=== PATIENT | female | born 1945 | race Caucasian/White ===

== ENCOUNTER 2020-07-31 13:22 | Emergency (ER) | payer MEDICARE ==
[~2020-07-31] VITALS: Ht 167.6 cm; Wt 100.0 kg
--- NOTE | 2020-07-31 14:00 | NUR ---
Pt stating that she wants "to take myself out" "My family hates me and so do I"
[2020-07-31 14:18] LABS: CLARITY,URINE CLEAR (Clear); COLOR,URINE STRAW (Yellow); GLUCOSE, URINE NEGATIVE (Neg); KETONES,URINE NEGATIVE (Neg); LEUKOCYTE ESTERASE ,URINE SMALL (Neg); NITRITES, URINE NEGATIVE (Neg); OCCULT BLOOD,URINE NEGATIVE (Neg); PH,URINE 6.5 (4.8-8.0); PROTEIN,URINE NEGATIVE (Neg); UA COLLECTION TYPE VOIDED; UROBILINOGEN,URINE 0.2 E.U/dL (0.2-1.0)
[2020-07-31 14:24] LABS: BACTERIA,URINE FEW /HPF (Neg); MUCUS STRANDS NONE SEEN /LPF (Neg); RBC,URINE NONE SEEN /HPF (0-2); SQUAMOUS EPITHELIAL CELL,UR FEW /LPF (FEW); WBC,URINE 0-4 /HPF (0-4)
[2020-07-31] MEDS ORDERED: GABA300T25 PO (14:24)
[2020-07-31] MEDS ORDERED: BENA10TA74 PO (14:24)
[2020-07-31] MEDS ORDERED: CITA40TA17 PO (14:24)
[2020-07-31] MEDS ORDERED: TRAM50TA2 PO (14:24)
[2020-07-31] MEDS ORDERED: METO25TA6 PO (14:24)
[2020-07-31] MEDS ORDERED: TRIA454O TOP (14:24)
--- NOTE | 2020-07-31 14:30 | NUR ---
Pt assisted to BSC and back to bed. Pt provided a warm blanket.
[2020-07-31 14:33] LABS: URINE AMPHETAMINE SCREEN NEGATIVE (Neg); URINE BARBITUATE SCREEN NEGATIVE (Neg); URINE BENZODIAZEPINES SCREEN NEGATIVE (Neg); URINE CANNABINOID SCREEN NEGATIVE (Neg); URINE COCAINE SCREEN NEGATIVE (Neg); URINE METHADONE SCREEN NEGATIVE (Neg); URINE OPIATE SCREEN NEGATIVE (Neg); URINE PHENCYCLIDINE SCREEN NEGATIVE (Neg)
--- NOTE | 2020-07-31 14:38 | NUR ---
Lab at bedside.
[2020-07-31] MEDS ORDERED: POTA10CA44 PO (14:39)
[2020-07-31 14:52] LABS: BASOPHILS % (AUTO) 0.5 % (0-1); EOSINOPHILS # (AUTO) 0.1 X10'3 (0-0.9); EOSINOPHILS % (AUTO) 0.8 % (0-6); HEMATOCRIT 41.6 % (35.0-45.0); HEMOGLOBIN 13.5 g/dl (12.0-16.0); LYMPHOCYTES # (AUTO) 1.2 X10'3 (1.1-4.8); MEAN CORPUSCULAR HEMOGLOBIN 28.5 PG (27.0-31.0); MEAN CORPUSCULAR HGB CONC 32.5 g/dL (33.0-36.5); MEAN CORPUSCULAR VOLUME 87.8 FL (78-98); MEAN PLATELET VOLUME 7.8 FL (7.4-10.4); MONOCYTES # (AUTO) 0.8 X10'3 (0-0.9); MONOCYTES % (AUTO) 11.1 % (2-12); NEUTROPHILS # (AUTO) 4.7 X10'3 (1.8-7.7); NEUTROPHILS % (AUTO) 69.6 % (42-75); PLATELET COUNT 220 X10'3 (140-440); RED BLOOD COUNT 4.74 X10'6 (4.20-5.60); RED CELL DISTRIBUTION WIDTH 18.9 % (11.5-14.5); WHITE BLOOD COUNT 6.8 X10'3 (4.5-11.0)
--- NOTE | 2020-07-31 15:00 | NUR ---
Pt up to the comode to urinate. Pt lying in bed without complaints.
[2020-07-31 15:14] LABS: ALANINE AMINOTRANSFERASE 66 U/L (12-78); ALBUMIN 2.9 G/DL (3.4-5.0); ALBUMIN/GLOBULIN RATIO 0.8 (1.1-1.5); ALKALINE PHOSPHATASE 112 IU/L (46-116); ANION GAP 11 (8-16); ASPARTATE AMINO TRANSFERASE 168 U/L (10-37); BILIRUBIN,TOTAL 0.7 MG/DL (0.1-1.0); BLOOD UREA NITROGEN 4 MG/DL (7-18); BUN/CREATININE RATIO 5.7 (6.6-38.0); CALCIUM 8.1 MG/DL (8.5-10.1); CHLORIDE 101 MMOL/L (99-107); GLUCOSE 93 MG/DL (70-104); POTASSIUM 3.3 MMOL/L (3.5-5.1); SODIUM 139 MMOL/L (135-145); TOTAL PROTEIN 6.7 G/DL (6.4-8.2); eGFR 82 ML/MIN
[2020-07-31 15:21] LABS: ETHANOL 0.147 GM/DL (0.0-0.010)
[2020-07-31 15:22] LABS: ACETAMINOPHEN < 2.0 UG/ML (10-30)
[2020-07-31 15:28] LABS: ANISOCYTOSIS 2+; PLATELET ESTIMATE NORMAL; POLYCHROMASIA FEW
[2020-07-31] MEDS ORDERED: traMADol 50MG tablet PO PRN (15:30)
--- NOTE | 2020-07-31 17:00 | NUR ---
Pt up multiple times to the comode to urinate. Pt c/o back pain, but when offered tramadol, pt refused and asked for some food which was provided.
[2020-07-31] MEDS ORDERED: ALBU2.5V10 (17:37)
[2020-07-31] MEDS ORDERED: albuterol 2.5 MG/3 ML nebule NEB PRN (17:40)
--- NOTE | 2020-07-31 19:04 | NUR ---
Patient is low fowlers position in bed. She complains of body pain, she exhibits anxiety, she states she needs night time oxygen as she has a history of asthma. SaO2 is 96 percent on room air, her lung mayer are clear and equal bilaterally. Patient is pink, warm, and dry. She speeks full sentences. Patient tells this machine sign writer that she wants oxygen tonight. Patient advised that at this time she is saturating well, this machine sign writer will re-evaluate prn. Patient Covid swab was done and sent to lab for a rapid.
[2020-07-31] MEDS: metoprolol tartrate 25mg tablet PO SCH (20:00)
--- NOTE | 2020-07-31 20:10 | NUR ---
Patient resting quietly, no distress. In view from nurses station.
[2020-07-31] MEDS: triamcinolone acetonide 0.1% ointment 15gm TP SCH (21:00)
[2020-07-31] MEDS: gabapentin 300mg capsule PO SCH (21:23)
--- NOTE | 2020-07-31 21:30 | NUR ---
Patient being interview by [facility].
--- NOTE | 2020-07-31 22:10 | NUR ---
Patient is sleeping, mid fowlers. W/D, no distress noted. Patient has been medication compliant.
--- NOTE | 2020-07-31 23:44 | NUR ---
Patient is resting quietly, mid fowlers position in bed. In view from nurses station.
--- NOTE | 2020-08-01 00:36 | NUR ---
Covid 19 test is negative.
--- NOTE | 2020-08-01 04:08 | NUR ---
Patient sleeps quietly on her left side. No s/s of any distress.
--- NOTE | 2020-08-01 06:44 | NUR ---
Received report from JEFFRY Rice. Pt resting with no distress noted. Pt. reporting nausea. Emesis basin at bedside. Will continue to monitor.
--- NOTE | 2020-08-01 06:48 | NUR ---
Pt. sleeping supine at this time.
[2020-08-01] MEDS: metoprolol tartrate 25mg tablet PO SCH ×2 (07:55→20:21)
[2020-08-01] MEDS: gabapentin 300mg capsule PO SCH ×3 (07:55→20:19)
[2020-08-01] MEDS ORDERED: potassium chloride 10mEq ER tablet PO SCH (08:00)
[2020-08-01] MEDS ORDERED: lisinopril 10 MG tablet PO SCH (08:00)
[2020-08-01] MEDS ORDERED: citalopram 20mg tablet PO SCH (08:00)
--- NOTE | 2020-08-01 08:04 | NUR ---
Chicken broth and crackers provided for c/o nausea, pt. states she is feeling better. Breakfast at bedside. Breathing treatment requested by pt. for c/o SOB, respiratory department notified via page. No respiratory distress noted. Will continue to monitor.
--- NOTE | 2020-08-01 09:55 | NUR ---
Pt awake resting in bed, no distress noted. Pt. seen using restroom utilizing walker with no difficulty noted. Pt. asking about placement, pt. told her paperwork is being reviewed by facilities and we are awaiting call backs.
--- NOTE | 2020-08-01 11:55 | NUR ---
Pt. awake, up using restroom. No distress noted. Will continue to monitor.
--- NOTE | 2020-08-01 13:25 | NUR ---
Pt. awake, pt. refused her lunch. Using restroom at this time. No distress noted. Will continue to monitor.
--- NOTE | 2020-08-01 15:28 | NUR ---
Pt. asleep supine in bed. No distress noted. Will continue to monitor.
[2020-08-01] MEDS ORDERED: potassium chloride 10mEq ER tablet PO ONE (16:00)
--- NOTE | 2020-08-01 16:23 | NUR ---
Pt. accepted upstairs at [facility], pt. notified and is ok with this decision. Pt. up using restroom at this time. No distress noted. Will continue to monitor.
--- NOTE | 2020-08-01 17:42 | NUR ---
Pt awake at bedside, Pt. informed RN she has been having episodes of diarrhea throughout the day and on and off nausea. Pt requesting medication to help with these symptoms. MD notified of mild temp. New orders obtained for zofran, no new medications for anti-diarrheal at this time to r/o infection.
[2020-08-01] MEDS ORDERED: ondansetron 4mg rapidly disintigrating tab PO PRN (17:55)
--- NOTE | 2020-08-01 19:03 | NUR ---
Patient is low fowlers position in bed. She presents as cooperative and needy. Patient was adjusted in bed, given fresh water, etc. SaO2 is 94 percent on room air. No abdominal or accessary muscle use.
[2020-08-01] MEDS: triamcinolone acetonide 0.1% ointment 15gm TP SCH (20:22)
[2020-08-01 20:35] VITALS: BP 128/90
== END 2020-08-01 21:44 | disposition home or self-care (01) ==
LOC: ER 13:23
DX: R45.851 Suicidal ideations (principal); I50.9 Heart failure, unspecified; J45.909 Unspecified asthma, uncomplicated; Z79.899 Other long term (current) drug therapy; Z91.040 Latex allergy status
CPT/HCPCS: 36415; 80053; 80305; 80320; 80329; 81001; 84132; 84443; 85008; 85025; 87635; 94640; 94664; 94760; 99285; C9803

== ENCOUNTER 2020-11-26 13:40 | Emergency (ER) | payer MEDICARE, BC ==
[~2020-11-26] VITALS: Ht 167.6 cm; Wt 86.4 kg
[~2020-11-26 13:40] MED LIST: ALBU2.5V10; CITA20TA28 PO; FOLI0.4T14 PO; FURO20TA4 PO; GABA300T25 PO; POTA-82 PO; THIA100T66 PO
[2020-11-26 14:50] LABS: CLARITY,URINE SLIGHTLY CLOUDY (Clear); COLOR,URINE STRAW (Yellow); GLUCOSE, URINE NEGATIVE (Neg); KETONES,URINE NEGATIVE (Neg); LEUKOCYTE ESTERASE ,URINE SMALL (Neg); NITRITES, URINE POSITIVE (Neg); OCCULT BLOOD,URINE NEGATIVE (Neg); PH,URINE 5.5 (4.8-8.0); PROTEIN,URINE NEGATIVE (Neg); UROBILINOGEN,URINE 0.2 E.U/dL (0.2-1.0)
[2020-11-26 14:53] LABS: BASOPHILS # (AUTO) 0.1 X10'3 (0-0.2); EOSINOPHILS # (AUTO) 0.3 X10'3 (0-0.9); EOSINOPHILS % (AUTO) 3.7 % (0-6); HEMATOCRIT 41.6 % (35.0-45.0); HEMOGLOBIN 13.5 g/dl (12.0-16.0); LYMPHOCYTES # (AUTO) 1.5 X10'3 (1.1-4.8); MEAN CORPUSCULAR HGB CONC 32.6 g/dL (33.0-36.5); MEAN PLATELET VOLUME 8.8 FL (7.4-10.4); MONOCYTES % (AUTO) 11.7 % (2-12); NEUTROPHILS # (AUTO) 5.4 X10'3 (1.8-7.7); NEUTROPHILS % (AUTO) 65.6 % (42-75); PLATELET COUNT 247 X10'3 (140-440); RED BLOOD COUNT 4.83 X10'6 (4.20-5.60); RED CELL DISTRIBUTION WIDTH 17.5 % (11.5-14.5); WHITE BLOOD COUNT 8.2 X10'3 (4.5-11.0)
[2020-11-26 14:55] LABS: UA COLLECTION TYPE VOIDED
[2020-11-26 14:57] LABS: BACTERIA,URINE 4+ /HPF (Neg); MUCUS STRANDS NONE SEEN /LPF (Neg); RBC,URINE NONE SEEN /HPF (0-2); SQUAMOUS EPITHELIAL CELL,UR FEW /LPF (FEW); TRANSITIONAL EPI CELLS,URINE FEW /HPF; WBC CLUMPS,URINE MODERATE /HPF (NEGATIVE); WBC,URINE 30-50 /HPF (0-4)
[2020-11-26 15:07] LABS: ALANINE AMINOTRANSFERASE 20 U/L (12-78); ALBUMIN 3.3 G/DL (3.4-5.0); ALBUMIN/GLOBULIN RATIO 0.8 (1.1-1.5); ALKALINE PHOSPHATASE 82 IU/L (46-116); ANION GAP 14 (8-16); ASPARTATE AMINO TRANSFERASE 27 U/L (10-37); BILIRUBIN,TOTAL 0.3 MG/DL (0.1-1.0); BLOOD UREA NITROGEN 11 MG/DL (7-18); BUN/CREATININE RATIO 16.9 (6.6-38.0); CALCIUM 8.8 MG/DL (8.5-10.1); CHLORIDE 102 MMOL/L (99-107); CREATININE 0.65 MG/DL (0.40-0.90); GLUCOSE 129 MG/DL (70-104); POTASSIUM 3.2 MMOL/L (3.5-5.1); SODIUM 139 MMOL/L (135-145); TOTAL CARBON DIOXIDE 23.3 MMOL/L (24-32); TOTAL PROTEIN 7.4 G/DL (6.4-8.2); eGFR 89 ML/MIN
--- NOTE | 2020-11-26 15:36 | NUR ---
Upon patients arrival to the Emergency Department, Patient and EMS were under the impression that patient was to be placed at [facility] upon discharge with the following documentation: medical clearance, admission orders to [facility], and negative COVID swab. To further evaluate regarding patients placement, I spoke with Madison from [facility]. At which she gave me her cutting room supervisor Areli's phone number . Spoke with Areli who stated that patient did in fact need a COVID swab and admission orders to [facility] per Reynaldo, . I explained the process of admitting patients to a [facility] facility and I believed that there was some confusion regarding this process. I then spoke with Reynaldo, at which same request was asked. I explained that the ER physicians do not write admission orders for patients to go to senior living care and that usually this was done my PCP or upon discharge from the hospital after admission. Reynaldo stated that she need to contact her Director of nurses, Es and would call ER back. Reynaldo called back at [phone], we had discussed the need to admission to hospital for admission to [facility] and that if patient did not meet admission criteria to be hospitalized that they did not think she met admission to be sent to [facility]. Reynaldo stated to me that they had told [facility] that they had beds available, but denied that they had accepted her without the proper work up. I stated that if patient was to be admitted to [facility] that I could make sure that case management was aware that [facility] would accept if patient met criteria. They agreed. At 1530, I then returned the call to Areli from [facility] who stated that she understood after explaining what had been discussed with [facility] staff. She also stated that she would have a home health nurse come out to patient a few more times this weekend to check on her and make sure we was doing well. All information was relayed to patient, as well as, to Nati and Kayla TERAN.
[2020-11-26] MEDS ORDERED: cephalexin 500mg capsule PO ONE (15:45)
[2020-11-26] MEDS ORDERED: potassium Cl 20 mEq SR tablet PO ONE (15:45)
[2020-11-26] MEDS ORDERED: CEPH-585 PO (15:51)
[2020-11-26 18:05] VITALS: BP 140/93
== END 2020-11-26 18:54 | disposition home or self-care (01) ==
LOC: ER 13:40
DX: S05.12XA Contusion of eyeball and orbital tissues, left eye, initial encounter (principal); Z20.822 Contact with and (suspected) exposure to COVID-19; S09.90XA Unspecified injury of head, initial encounter; M25.561 Pain in right knee; R60.0 Localized edema; N39.0 Urinary tract infection, site not specified; I11.0 Hypertensive heart disease with heart failure; I50.9 Heart failure, unspecified; J45.909 Unspecified asthma, uncomplicated; G89.29 Other chronic pain; Z88.8 Allergy status to other drugs, medicaments and biological substances; Z91.040 Latex allergy status; Z79.899 Other long term (current) drug therapy; W19.XXXA Unspecified fall, initial encounter; Y93.89 Activity, other specified; Y92.89 Other specified places as the place of occurrence of the external cause; Y99.8 Other external cause status
CPT/HCPCS: 36415; 70450; 72125; 73564; 80053; 81001; 85025; 87077; 87088; 87186; 87635; 93005; 99285; C9803

== ENCOUNTER 2020-12-25 23:13 | Emergency (ER) | payer MEDICARE, BC ==
[~2020-12-25] VITALS: Ht 167.6 cm; Wt 125.0 kg
[~2020-12-25 23:13] MED LIST changes: +CEPH-585 PO
[2020-12-26 02:21] LABS: ANION GAP 13 (8-16); BLOOD UREA NITROGEN 6 MG/DL (7-18); CHLORIDE 102 MMOL/L (99-107); CREATININE 0.75 MG/DL (0.40-0.90); GLUCOSE 88 MG/DL (70-104); POTASSIUM 3.4 MMOL/L (3.5-5.1); SODIUM 139 MMOL/L (135-145); TOTAL CARBON DIOXIDE 23.8 MMOL/L (24-32); eGFR 76 ML/MIN
[2020-12-26 02:23] LABS: BASOPHILS # (AUTO) 0.1 X10'3 (0-0.2); EOSINOPHILS # (AUTO) 0.3 X10'3 (0-0.9); EOSINOPHILS % (AUTO) 5.4 % (0-6); HEMATOCRIT 40.1 % (35.0-45.0); HEMOGLOBIN 12.5 g/dl (12.0-16.0); LYMPHOCYTES # (AUTO) 1.7 X10'3 (1.1-4.8); LYMPHOCYTES % (AUTO) 34.3 % (21-51); MEAN CORPUSCULAR HEMOGLOBIN 27.5 PG (27.0-31.0); MEAN CORPUSCULAR HGB CONC 31.2 g/dL (33.0-36.5); MEAN PLATELET VOLUME 8.4 FL (7.4-10.4); MONOCYTES # (AUTO) 0.8 X10'3 (0-0.9); MONOCYTES % (AUTO) 16.9 % (2-12); NEUTROPHILS % (AUTO) 41.4 % (42-75); PLATELET COUNT 204 X10'3 (140-440); RED BLOOD COUNT 4.55 X10'6 (4.20-5.60); RED CELL DISTRIBUTION WIDTH 19.3 % (11.5-14.5); WHITE BLOOD COUNT 4.8 X10'3 (4.5-11.0)
[2020-12-26 03:11] LABS: TROPONIN I < 0.04 NG/ML (0.0-0.05)
[2020-12-26 03:12] LABS: TOTAL CELLS COUNTED 100
[2020-12-26 03:16] LABS: ANISOCYTOSIS 2+; PLATELET ESTIMATE NORMAL
[2020-12-26 03:17] LABS: HYPOCHROMASIA 1+
[2020-12-26] MEDS ORDERED: normal saline 1000ml 1,000 ML IV ONE (03:45)
--- NOTE | 2020-12-26 04:57 | NUR ---
v/s rechecked with bp cuff on L.arm, bp improved. Spoke to who requests straight cath for urine
[2020-12-26 06:00] VITALS: BP 103/64
[2020-12-26 07:46] LABS: CLARITY,URINE SLIGHTLY CLOUDY (Clear); COLOR,URINE YELLOW (Yellow); GLUCOSE, URINE NEGATIVE (Neg); KETONES,URINE NEGATIVE (Neg); LEUKOCYTE ESTERASE ,URINE MODERATE (Neg); NITRITES, URINE NEGATIVE (Neg); OCCULT BLOOD,URINE NEGATIVE (Neg); PROTEIN,URINE NEGATIVE (Neg); UROBILINOGEN,URINE 0.2 E.U/dL (0.2-1.0)
[2020-12-26 07:53] LABS: UA COLLECTION TYPE STRAIGHT CATH
[2020-12-26 08:09] LABS: SQUAMOUS EPITHELIAL CELL,UR FEW /LPF (FEW); TRANSITIONAL EPI CELLS,URINE FEW /HPF
[2020-12-26 08:10] LABS: BACTERIA,URINE 3+ /HPF (Neg); WBC CLUMPS,URINE FEW /HPF (NEGATIVE); WBC,URINE 30-50 /HPF (0-4)
[2020-12-26 08:11] LABS: RBC,URINE NONE SEEN /HPF (0-2)
[2020-12-26] MEDS ORDERED: CEPH-585 PO (08:19)
== END 2020-12-26 11:39 | disposition home or self-care (01) ==
LOC: ER 23:13
DX: S81.811A Laceration without foreign body, right lower leg, initial encounter (principal); N39.0 Urinary tract infection, site not specified; I11.0 Hypertensive heart disease with heart failure; I50.9 Heart failure, unspecified; J45.909 Unspecified asthma, uncomplicated; G89.29 Other chronic pain; Z88.8 Allergy status to other drugs, medicaments and biological substances; Z91.040 Latex allergy status; Z79.2 Long term (current) use of antibiotics; Z79.899 Other long term (current) drug therapy; W19.XXXA Unspecified fall, initial encounter; Y93.89 Activity, other specified; Y92.89 Other specified places as the place of occurrence of the external cause; Y99.8 Other external cause status
CPT/HCPCS: 36415; 71045; 80048; 81001; 84484; 85007; 85025; 93005; 96360; 99285; J7030

== ENCOUNTER 2023-04-12 09:05 | Outpatient (CLI) | payer MEDICARE, BC ==
[2023-04-12] VITALS (7 sets, daily range): BP systolic 113–137; BP diastolic 63–78; PULSE 70–87; RESP 16; O2SAT 94–98
[~2023-04-12] VITALS: Ht 142.2 cm; Wt 95.0 kg
[~2023-04-12 09:05] MED LIST changes: -CEPH-585 PO; +POTA-366 PO; -POTA-82 PO
[2023-04-12] MEDS ORDERED: regadenoson 0.4mg/5ml syringe IV ONE (10:30)
[2023-04-12] MEDS ORDERED: aminophylline 250mg/10ml inj. IV PRN (10:30)
[2023-04-12] MEDS ORDERED: nitroGLYCERIN 0.4mg SUBLingual tab SL PRN (10:30)
[2023-04-12] MEDS ORDERED: normal saline 500ml IV soln 500 ML IV ONE (10:30)
== END 2023-04-12 23:59 | disposition home or self-care (01) ==
LOC: RAD 09:05
PROVIDERS: ATTEND Internal Medicine Interventional Cardiology
DX: I50.32 Chronic diastolic (congestive) heart failure (principal)
CPT/HCPCS: 78452; 93017; A9500; J0280; J2785; J7040

== ENCOUNTER 2023-06-27 10:56 | Day surgery (SDC) | payer MEDICARE, BC ==
[~2023-06-27] VITALS: Ht 167.6 cm; Wt 102.3 kg
[2023-06-27 11:30] VITALS: BP 139/93; PULSE 95; RESP 18; TEMP 99.6; O2SAT 93
[2023-06-27] MEDS ORDERED: heparin sodium, porcine/PF 100unit/ml 5ML syringe ONE (12:09)
[2023-06-27] MEDS ORDERED: midazolam 1 mg/ML 2ml injection ONE ×2 (12:09→13:05)
[2023-06-27] MEDS ORDERED: fentaNYL/PF 50MCG/1 ML 2ML syringe ONE ×2 (12:09→13:05)
[2023-06-27] MEDS ORDERED: LIDOcaine 1% 30ml preserv. free vial ONE (12:09)
[2023-06-27 12:20] LABS: BASOPHILS # (AUTO) 0.1 X10'3 (0-0.2); BASOPHILS % (AUTO) 0.8 % (0-1); EOSINOPHILS # (AUTO) 0.2 X10'3 (0-0.9); EOSINOPHILS % (AUTO) 2.1 % (0-6); HEMATOCRIT 47.9 % (35.0-45.0); HEMOGLOBIN 15.5 g/dl (12.0-16.0); LYMPHOCYTES # (AUTO) 1.6 X10'3 (1.1-4.8); LYMPHOCYTES % (AUTO) 14.2 % (21-51); MEAN CORPUSCULAR HEMOGLOBIN 26.7 PG (27.0-31.0); MEAN CORPUSCULAR HGB CONC 32.5 g/dL (33.0-36.5); MEAN CORPUSCULAR VOLUME 82.2 FL (78-98); MEAN PLATELET VOLUME 8.3 FL (7.4-10.4); MONOCYTES # (AUTO) 0.9 X10'3 (0-0.9); MONOCYTES % (AUTO) 8.2 % (2-12); NEUTROPHILS # (AUTO) 8.3 X10'3 (1.8-7.7); NEUTROPHILS % (AUTO) 74.7 % (42-75); PLATELET COUNT 228 X10'3 (140-440); RED BLOOD COUNT 5.83 X10'6 (4.20-5.60); RED CELL DISTRIBUTION WIDTH 15.8 % (11.5-14.5); WHITE BLOOD COUNT 11.1 X10'3 (4.5-11.0)
[2023-06-27] MEDS: normal saline 1000ml 1,000 ML IV PRN (12:25)
[2023-06-27] MEDS ORDERED: ANAS1TAB10 PO (12:26)
[2023-06-27] MEDS ORDERED: TRAM50TA2 PO (12:26)
[2023-06-27] MEDS ORDERED: RIVA20TA PO (12:26)
[2023-06-27] MEDS ORDERED: CELE-193 PO (12:26)
[2023-06-27] MEDS ORDERED: OMEP20TA23 PO (12:26)
[2023-06-27 12:36] LABS: PROTHROMBIN TIME 10.6 SECONDS (9.0-12.0)
[2023-06-27 13:35] VITALS: BP 145/83; PULSE 95; RESP 16; O2SAT 93
[2023-06-27 13:50] VITALS: BP 117/81; PULSE 101; RESP 15; O2SAT 92
[2023-06-27 14:05] VITALS: BP 131/85; PULSE 100; RESP 16; O2SAT 93
[2023-06-27 14:20] VITALS: BP 106/60; PULSE 101; RESP 16; O2SAT 92
== END 2023-06-27 14:40 ==
LOC: SSTAY O 10:56
PROVIDERS: ATTEND Radiology Vascular & Interventional Radiology
DX: C50.411 Malignant neoplasm of upper-outer quadrant of right female breast (principal); Z88.5 Allergy status to narcotic agent; Z91.040 Latex allergy status; Z91.09 Other allergy status, other than to drugs and biological substances; Z79.899 Other long term (current) drug therapy; Z79.01 Long term (current) use of anticoagulants
CPT/HCPCS: 36415; 36561; 76937; 77001; 85025; 85610; 99152; 99153; C1788; J1642; J2250; J3010; J3490; J7030; A4620

== ENCOUNTER 2023-10-02 14:00 | Emergency (ER) | payer MEDICARE, BC ==
[~2023-10-02] VITALS: Ht 170.2 cm; Wt 100.0 kg
[~2023-10-02 14:00] MED LIST changes: +ANAS1TAB10 PO; +CELE-193 PO; -FOLI0.4T14 PO; -FURO20TA4 PO; +OMEP20TA23 PO; -POTA-366 PO; +RIVA20TA PO; -THIA100T66 PO; +TRAM50TA2 PO
[2023-10-02 15:09] VITALS: TEMP 98.4
[2023-10-02] MEDS: ondansetron/PF 4mg/2ml inj IV ONE (16:09)
[2023-10-02] MEDS: morphine 4 MG/ML inj SYRINge IV ONE (16:10)
[2023-10-02 16:57] LABS: BASOPHILS # (AUTO) 0.1 X10'3 (0-0.2); BASOPHILS % (AUTO) 1.2 % (0-1); EOSINOPHILS # (AUTO) 0.8 X10'3 (0-0.9); EOSINOPHILS % (AUTO) 8.7 % (0-6); HEMOGLOBIN 13.3 g/dl (12.0-16.0); LYMPHOCYTES # (AUTO) 1.2 X10'3 (1.1-4.8); LYMPHOCYTES % (AUTO) 13.6 % (21-51); MEAN CORPUSCULAR HEMOGLOBIN 27.5 PG (27.0-31.0); MEAN CORPUSCULAR HGB CONC 32.4 g/dL (33.0-36.5); MEAN CORPUSCULAR VOLUME 84.8 FL (78-98); MEAN PLATELET VOLUME 8.6 FL (7.4-10.4); MONOCYTES % (AUTO) 12.1 % (2-12); NEUTROPHILS # (AUTO) 5.6 X10'3 (1.8-7.7); NEUTROPHILS % (AUTO) 64.4 % (42-75); PLATELET COUNT 223 X10'3 (140-440); RED BLOOD COUNT 4.83 X10'6 (4.20-5.60); WHITE BLOOD COUNT 8.6 X10'3 (4.5-11.0)
[2023-10-02 17:03] LABS: ALANINE AMINOTRANSFERASE 13 U/L (12-78); ALBUMIN 3.1 G/DL (3.4-5.0); ALBUMIN/GLOBULIN RATIO 0.8 (1.1-1.5); ALKALINE PHOSPHATASE 97 IU/L (46-116); ANION GAP 2 (8-16); ASPARTATE AMINO TRANSFERASE 16 U/L (10-37); BILIRUBIN,TOTAL 0.3 MG/DL (0.1-1.0); BLOOD UREA NITROGEN 9 MG/DL (7-18); BUN/CREATININE RATIO 13.2 (10.0-20.0); CALCIUM 8.5 MG/DL (8.5-10.1); CHLORIDE 101 MMOL/L (99-107); CREATININE 0.68 MG/DL (0.40-0.90); GLUCOSE 97 MG/DL (70-104); POTASSIUM 3.3 MMOL/L (3.5-5.1); SODIUM 138 MMOL/L (135-145); TOTAL CARBON DIOXIDE 35.1 MMOL/L (24-32); TOTAL PROTEIN 6.9 G/DL (6.4-8.2); eCRCL 67 ML/MIN; eGFR 84 ML/MIN
[2023-10-02 17:06] VITALS: BP 104/68; PULSE 103; RESP 18; O2SAT 97
[2023-10-02] MEDS ORDERED: DOXY-225 PO (17:43)
[2023-10-02] MEDS: DOXYCYCLINE 100MG CAPSULE PO STA (18:19)
== END 2023-10-02 20:00 | disposition home or self-care (01) ==
LOC: ER 14:00
DX: L03.116 Cellulitis of left lower limb (principal); L03.115 Cellulitis of right lower limb; I11.0 Hypertensive heart disease with heart failure; I50.9 Heart failure, unspecified; J45.909 Unspecified asthma, uncomplicated; J44.9 Chronic obstructive pulmonary disease, unspecified; G89.29 Other chronic pain; M54.9 Dorsalgia, unspecified; F32.A Depression, unspecified; Z88.8 Allergy status to other drugs, medicaments and biological substances; Z91.040 Latex allergy status
CPT/HCPCS: 36415; 71045; 80053; 85025; 93971; 96374; 96375; 99285; J2270; J2405; A4615

== ENCOUNTER 2024-03-03 12:57 | Inpatient (IN) | payer MEDICARE, BC ==
[~2024-03-03] VITALS: Ht 167.6 cm; Wt 102.7 kg
[2024-03-03 13:36] LABS: BILIRUBIN,URINE NEGATIVE (Neg); CLARITY,URINE CLEAR (Clear); COLOR,URINE YELLOW (Yellow); GLUCOSE, URINE NEGATIVE (Neg); KETONES,URINE NEGATIVE (Neg); LEUKOCYTE ESTERASE ,URINE NEGATIVE (Neg); NITRITES, URINE NEGATIVE (Neg); OCCULT BLOOD,URINE NEGATIVE (Neg); PH,URINE 6.5 (4.8-8.0); PROTEIN,URINE NEGATIVE (Neg); UROBILINOGEN,URINE 0.2 E.U/dL (0.2-1.0)
[2024-03-03 13:41] LABS: UA COLLECTION TYPE VOIDED
[2024-03-03 13:42] LABS: BASOPHILS # (AUTO) 0.1 X10'3 (0-0.2); BASOPHILS % (AUTO) 0.5 % (0-1); EOSINOPHILS # (AUTO) 0.2 X10'3 (0-0.9); EOSINOPHILS % (AUTO) 1.9 % (0-6); HEMATOCRIT 39.3 % (35.0-45.0); HEMOGLOBIN 12.8 g/dl (12.0-16.0); LYMPHOCYTES # (AUTO) 1.4 X10'3 (1.1-4.8); LYMPHOCYTES % (AUTO) 12.5 % (21-51); MEAN CORPUSCULAR HEMOGLOBIN 27.5 PG (27.0-31.0); MEAN CORPUSCULAR HGB CONC 32.5 g/dL (33.0-36.5); MEAN CORPUSCULAR VOLUME 84.7 FL (78-98); MEAN PLATELET VOLUME 7.5 FL (7.4-10.4); MONOCYTES % (AUTO) 8.9 % (2-12); NEUTROPHILS # (AUTO) 8.4 X10'3 (1.8-7.7); NEUTROPHILS % (AUTO) 76.2 % (42-75); PLATELET COUNT 229 X10'3 (140-440); RED BLOOD COUNT 4.65 X10'6 (4.20-5.60)
[2024-03-03 13:58] LABS: ALBUMIN 3.2 G/DL (3.4-5.0); ANION GAP 5 (8-16); BLOOD UREA NITROGEN 9 MG/DL (7-18); BUN/CREATININE RATIO 10.7 (10.0-20.0); CALCIUM 9.3 MG/DL (8.5-10.1); CHLORIDE 99 MMOL/L (99-107); CREATININE 0.84 MG/DL (0.40-0.90); GLUCOSE 113 MG/DL (70-104); POTASSIUM 3.4 MMOL/L (3.5-5.1); SODIUM 138 MMOL/L (135-145); TOTAL CARBON DIOXIDE 34.3 MMOL/L (24-32); eCRCL 53 ML/MIN; eGFR 66 ML/MIN
[2024-03-03] MEDS ORDERED: potassium Cl 20 mEq SR tablet PO PRN ×2 (15:20)
[2024-03-03] MEDS ORDERED: potassium Cl 40MEQ/1/2NS 520ml 520 ML IV PRN (15:20)
[2024-03-03] MEDS ORDERED: ondansetron/PF 4mg/2ml inj IV PRN (15:20)
[2024-03-03] MEDS ORDERED: bisacodyl 10mg suppository rectal RC PRN (15:20)
[2024-03-03] MEDS ORDERED: magnesium sulf-water 4G/100mL 100 ML IV PRN (15:20)
[2024-03-03] MEDS ORDERED: mag hydrox/Alum hydrox/simeth 30ml oral suspension PO PRN (15:20)
[2024-03-03] MEDS ORDERED: magnesium sulf-water 2g/50mL 50 ML IV PRN (15:20)
[2024-03-03] MEDS: CefTRIAXone/D5W-Rocephin 1gm 50 ML IV ONE (15:45)
[2024-03-03] MEDS: VANCOMYCIN 1GM 200ML H20 (PEG) 200 ML IV ONE (16:28)
[2024-03-03] MEDS: acetaminophen 325mg tablet PO PRN (17:10)
[2024-03-03] MEDS ORDERED: ASCO-100 PO (18:41)
[2024-03-03] MEDS ORDERED: FERR325T28 PO (18:41)
[2024-03-03] MEDS ORDERED: [UNRECOGNIZED DRUG - OTHER] PO (18:41)
[2024-03-03] MEDS ORDERED: BETA15CR4 TOP (18:41)
[2024-03-03] MEDS ORDERED: FURO40TA4 PO (18:41)
[2024-03-03] MEDS ORDERED: MULT-453 PO (18:41)
[2024-03-03] MEDS ORDERED: FOLI1TAB27 PO (18:41)
[2024-03-03] MEDS ORDERED: CITA40TA16 PO (18:41)
[2024-03-03] MEDS ORDERED: ALBU18HF2 INH (18:41)
[2024-03-03] MEDS ORDERED: CELE-127 PO (18:41)
[2024-03-03] MEDS ORDERED: LORA10TA7 PO (18:41)
[2024-03-03] MEDS ORDERED: CALCIUM PO (18:41)
[2024-03-03] MEDS ORDERED: PROBIOTIC CAPSULE PO (18:41)
[2024-03-03] MEDS ORDERED: TRAM50TA2 PO (18:41)
[2024-03-03] MEDS ORDERED: traMADol 50MG tablet PO PRN (19:15)
[2024-03-03] MEDS ORDERED: albuterol 2.5 MG/3 ML nebule NEB PRN (19:15)
[2024-03-03] MEDS ORDERED: ipratropium/albuterol 3ml nebule NEB PRN (19:15)
[2024-03-03] MEDS: calcium carbonate 500mg tablet PO SCH (20:00)
[2024-03-03] MEDS: ferrous sulfate 325mg tablet PO SCH (21:49)
[2024-03-03] MEDS: traMADol 50MG tablet PO SCH (21:49)
[2024-03-03] MEDS: gabapentin 300mg capsule PO SCH (21:50)
[2024-03-03] MEDS: K and/or MAG REPLACEMENT MC SCH (22:09)
[2024-03-03] MEDS: docusate sod 100mg capsule PO SCH (22:19)
[2024-03-03] MEDS: enoxaparin 40mg/0.4ml syringe SQ SCH (22:19)
[2024-03-03] MEDS: furosemide 40mg tablet PO SCH (22:19)
[2024-03-03 22:52] VITALS: PULSE 76; RESP 18; O2SAT 95
[2024-03-04] VITALS (13 sets, daily range): BP systolic 102–131; BP diastolic 69–102; PULSE 64–83; RESP 12–18; TEMP 97.7–98.1; O2SAT 90–98
[2024-03-04] MEDS: VANCOMYCIN 1GM 200ML H20 (PEG) 200 ML IV SCH (05:36)
[2024-03-04 07:57] LABS: BASOPHILS % (AUTO) 0.5 % (0-1); EOSINOPHILS # (AUTO) 0.3 X10'3 (0-0.9); HEMOGLOBIN 12.7 g/dl (12.0-16.0); LYMPHOCYTES # (AUTO) 1.1 X10'3 (1.1-4.8); LYMPHOCYTES % (AUTO) 12.1 % (21-51); MEAN CORPUSCULAR HEMOGLOBIN 27.2 PG (27.0-31.0); MEAN CORPUSCULAR HGB CONC 31.8 g/dL (33.0-36.5); MEAN CORPUSCULAR VOLUME 85.4 FL (78-98); MONOCYTES # (AUTO) 0.9 X10'3 (0-0.9); MONOCYTES % (AUTO) 10.3 % (2-12); NEUTROPHILS # (AUTO) 6.5 X10'3 (1.8-7.7); NEUTROPHILS % (AUTO) 74.1 % (42-75); PLATELET COUNT 220 X10'3 (140-440); RED BLOOD COUNT 4.69 X10'6 (4.20-5.60); RED CELL DISTRIBUTION WIDTH 16.6 % (11.5-14.5); WHITE BLOOD COUNT 8.7 X10'3 (4.5-11.0)
[2024-03-04] MEDS: CefTRIAXone/D5W-Rocephin 1gm 50 ML IV SCH (07:59)
[2024-03-04 08:18] LABS: ALANINE AMINOTRANSFERASE 15 U/L (12-78); ALBUMIN/GLOBULIN RATIO 0.8 (1.1-1.5); ALKALINE PHOSPHATASE 63 IU/L (46-116); ANION GAP 5 (8-16); ASPARTATE AMINO TRANSFERASE 16 U/L (10-37); BILIRUBIN,TOTAL 0.5 MG/DL (0.1-1.0); BLOOD UREA NITROGEN 8 MG/DL (7-18); BUN/CREATININE RATIO 11.4 (10.0-20.0); CALCIUM 8.7 MG/DL (8.5-10.1); CHLORIDE 102 MMOL/L (99-107); GLUCOSE 92 MG/DL (70-104); POTASSIUM 3.8 MMOL/L (3.5-5.1); SODIUM 141 MMOL/L (135-145); TOTAL CARBON DIOXIDE 33.7 MMOL/L (24-32); TOTAL PROTEIN 6.9 G/DL (6.4-8.2); eCRCL 63 ML/MIN; eGFR 81 ML/MIN
[2024-03-04] MEDS: citalopram 20mg tablet PO SCH (08:47)
[2024-03-04] MEDS: celeCOXIB 100mg capsule PO SCH (08:48)
[2024-03-04] MEDS: pantoprazole 40mg Tablet.DR PO SCH (08:50)
[2024-03-04] MEDS: multivitamins, therapeutics tablet PO SCH (09:14)
[2024-03-04] MEDS: folic acid 1mg tablet PO SCH (09:15)
[2024-03-04] MEDS: ascorbic acid 500mg tablet PO SCH (09:16)
[2024-03-04] MEDS: loratadine 10mg tablet PO SCH (09:17)
[2024-03-04] MEDS: anastrozole 1 MG tablet PO SCH (09:22)
[2024-03-04] MEDS ORDERED: LIDOcaine 1% (10mg/ml)w/preservative inj. 20ml MDV ONE (10:52)
[2024-03-04] MEDS ORDERED: LIDOcaine 1% W/epiNEPHrine 1:100,000 20ml vial ONE (11:08)
[2024-03-04] MEDS ORDERED: oxyCODONE/APAP 5-325mg tablet PO PRN (12:40)
[2024-03-04] MEDS: oxyCODONE/APAP 5-325mg tablet PO PRN (12:47)
[2024-03-05] MEDS: VANCOMYCIN LEVEL IV ONE (03:30)
[2024-03-05 05:56] LABS: ALANINE AMINOTRANSFERASE 15 U/L (12-78); ALBUMIN 2.9 G/DL (3.4-5.0); ALBUMIN/GLOBULIN RATIO 0.7 (1.1-1.5); ALKALINE PHOSPHATASE 54 IU/L (46-116); ANION GAP 5 (8-16); ASPARTATE AMINO TRANSFERASE 24 U/L (10-37); BILIRUBIN,TOTAL 0.4 MG/DL (0.1-1.0); BLOOD UREA NITROGEN 15 MG/DL (7-18); BUN/CREATININE RATIO 23.1 (10.0-20.0); CALCIUM 9.1 MG/DL (8.5-10.1); CHLORIDE 103 MMOL/L (99-107); CREATININE 0.65 MG/DL (0.40-0.90); GLUCOSE 91 MG/DL (70-104); MAGNESIUM 2.1 MG/DL (1.5-2.4); SODIUM 138 MMOL/L (135-145); TOTAL CARBON DIOXIDE 29.6 MMOL/L (24-32); TOTAL PROTEIN 6.8 G/DL (6.4-8.2); VANCOMYCIN,TROUGH 14.1 ug/mL (10.0-20.0); eCRCL 68 ML/MIN; eGFR 88 ML/MIN
[2024-03-05 06:03] LABS: POTASSIUM 4.2 MMOL/L (3.5-5.1)
[2024-03-05 06:20] LABS: BASOPHILS # (AUTO) 0.1 X10'3 (0-0.2); BASOPHILS % (AUTO) 1.3 % (0-1); EOSINOPHILS # (AUTO) 0.3 X10'3 (0-0.9); EOSINOPHILS % (AUTO) 4.2 % (0-6); HEMATOCRIT 41.5 % (35.0-45.0); HEMOGLOBIN 13.1 g/dl (12.0-16.0); LYMPHOCYTES # (AUTO) 1.1 X10'3 (1.1-4.8); LYMPHOCYTES % (AUTO) 16.3 % (21-51); MEAN CORPUSCULAR HEMOGLOBIN 27.1 PG (27.0-31.0); MEAN CORPUSCULAR HGB CONC 31.6 g/dL (33.0-36.5); MEAN CORPUSCULAR VOLUME 85.8 FL (78-98); MEAN PLATELET VOLUME 7.9 FL (7.4-10.4); MONOCYTES # (AUTO) 0.9 X10'3 (0-0.9); MONOCYTES % (AUTO) 13.2 % (2-12); NEUTROPHILS # (AUTO) 4.3 X10'3 (1.8-7.7); PLATELET COUNT 206 X10'3 (140-440); RED BLOOD COUNT 4.83 X10'6 (4.20-5.60); RED CELL DISTRIBUTION WIDTH 16.2 % (11.5-14.5); WHITE BLOOD COUNT 6.6 X10'3 (4.5-11.0)
[2024-03-05 07:02] VITALS: BP 116/73; PULSE 62; RESP 14; TEMP 97.9; O2SAT 94
[2024-03-05 07:55] VITALS: RESP 14; O2SAT 92
[2024-03-05 10:00] VITALS: BP 125/69; PULSE 74; RESP 14; TEMP 98.9; O2SAT 92
[2024-03-05] MEDS ORDERED: SACC250C PO (12:53)
[2024-03-05] MEDS ORDERED: CEPH500C3 PO (12:53)
[2024-03-05 13:04] VITALS: RESP 18
[2024-03-05] MEDS ORDERED: VANCOMYCIN/WATER FOR INJ (PEG) 1.25GM/250 ML IVPB IV SCH (16:00)
[2024-03-05] MEDS ORDERED: LEVO750T68 PO (19:47)
[2024-03-07] MEDS ORDERED: VANCOMYCIN LEVEL IV ONE (03:30)
== END 2024-03-05 16:35 | disposition home or self-care (01) | DRG 314 ==
LOC: ER 12:57 → ED HOLD 15:26 → SUR 3N 03-04 05:25
PROVIDERS: ADMIT Family Medicine; ATTEND Family Medicine
PROC: 0JPT0WZ Removal of Totally Implantable Vascular Access Device from Trunk Subcutaneous Tissue and Fascia, Open Approach (ICD-10-PCS; principal; 2024-03-04)
DX: T80.218A Other infection due to central venous catheter, initial encounter (principal); J96.00 Acute respiratory failure, unspecified whether with hypoxia or hypercapnia; I48.20 Chronic atrial fibrillation, unspecified; L03.319 Cellulitis of trunk, unspecified; J44.9 Chronic obstructive pulmonary disease, unspecified; C50.919 Malignant neoplasm of unspecified site of unspecified female breast; F32.A Depression, unspecified; G89.29 Other chronic pain; F41.9 Anxiety disorder, unspecified; M54.9 Dorsalgia, unspecified; F03.90 Unspecified dementia, unspecified severity, without behavioral disturbance, psychotic disturbance, mood disturbance, and anxiety; E87.6 Hypokalemia; Y83.8 Other surgical procedures as the cause of abnormal reaction of the patient, or of later complication, without mention of misadventure at the time of the procedure; I11.0 Hypertensive heart disease with heart failure; I50.9 Heart failure, unspecified; Z88.5 Allergy status to narcotic agent; Z91.040 Latex allergy status; Z86.73 Personal history of transient ischemic attack (TIA), and cerebral infarction without residual deficits; Z85.3 Personal history of malignant neoplasm of breast; Z92.21 Personal history of antineoplastic chemotherapy; Z79.899 Other long term (current) drug therapy; Y92.89 Other specified places as the place of occurrence of the external cause
CPT/HCPCS: 36415; 36590; 71045; 71250; 80048; 80053; 80202; 81003; 83605; 83735; 84145; 85025; 87040; 87070; 87077; 87081; 87186; 94760; 99285; G0378; J0696; J1650; J3370; J3372; J3490

== ENCOUNTER 2024-07-02 08:59 | Emergency (ER) | payer MEDICARE, BC ==
[~2024-07-02] VITALS: Ht 167.6 cm; Wt 100.0 kg
[~2024-07-02 08:59] MED LIST changes: +ALBU18HF2 INH; -ALBU2.5V10; +ASCO-100 PO; +BETA15CR4 TOP; +CALCIUM PO; +CELE-127 PO; -CELE-193 PO; +CEPH500C3 PO; -CITA20TA28 PO; +CITA40TA16 PO; +FERR325T28 PO; +FOLI1TAB27 PO; +FURO40TA4 PO; +LORA10TA7 PO; +MULT-453 PO; +PROBIOTIC CAPSULE PO; +SACC250C PO; +[UNRECOGNIZED DRUG - OTHER] PO
[2024-07-02] MEDS: morphine 4 MG/ML inj SYRINge IV ONE (10:02)
[2024-07-02 10:16] LABS: BASOPHILS # (AUTO) 0.1 X10'3 (0-0.2); BASOPHILS % (AUTO) 1.4 % (0-1); EOSINOPHILS # (AUTO) 0.5 X10'3 (0-0.9); EOSINOPHILS % (AUTO) 5.6 % (0-6); HEMOGLOBIN 12.7 g/dl (12.0-16.0); LYMPHOCYTES # (AUTO) 1.3 X10'3 (1.1-4.8); MEAN CORPUSCULAR HEMOGLOBIN 27.1 PG (27.0-31.0); MEAN CORPUSCULAR HGB CONC 32.4 g/dL (33.0-36.5); MEAN CORPUSCULAR VOLUME 83.6 FL (78-98); MEAN PLATELET VOLUME 7.9 FL (7.4-10.4); MONOCYTES # (AUTO) 1.1 X10'3 (0-0.9); MONOCYTES % (AUTO) 12.1 % (2-12); NEUTROPHILS # (AUTO) 6.1 X10'3 (1.8-7.7); NEUTROPHILS % (AUTO) 66.9 % (42-75); PLATELET COUNT 218 X10'3 (140-440); RED BLOOD COUNT 4.66 X10'6 (4.20-5.60); RED CELL DISTRIBUTION WIDTH 15.3 % (11.5-14.5); WHITE BLOOD COUNT 9.1 X10'3 (4.5-11.0)
[2024-07-02 10:39] LABS: ALANINE AMINOTRANSFERASE 9 U/L (12-78); ALBUMIN/GLOBULIN RATIO 0.8 (1.1-1.5); ALKALINE PHOSPHATASE 58 IU/L (46-116); ANION GAP 5 (8-16); ASPARTATE AMINO TRANSFERASE 17 U/L (10-37); BILIRUBIN,TOTAL 0.5 MG/DL (0.1-1.0); BLOOD UREA NITROGEN 10 MG/DL (7-18); BUN/CREATININE RATIO 12.3 (10.0-20.0); CALCIUM 8.9 MG/DL (8.5-10.1); CHLORIDE 105 MMOL/L (99-107); CREATININE 0.81 MG/DL (0.40-0.90); GLUCOSE 97 MG/DL (70-104); SODIUM 140 MMOL/L (135-145); TOTAL CARBON DIOXIDE 29.7 MMOL/L (24-32); TOTAL PROTEIN 6.7 G/DL (6.4-8.2); eCRCL 54 ML/MIN; eGFR 69 ML/MIN
[2024-07-02 10:41] LABS: C-REACTIVE PROTEIN 1.85 MG/DL (0.0-0.5); CREATINE KINASE 51 U/L (26-192); MAGNESIUM 1.7 MG/DL (1.5-2.4)
[2024-07-02 18:29] VITALS: BP 129/72; PULSE 72; RESP 16; TEMP 98.2; O2SAT 94
== END 2024-07-02 18:33 | disposition home or self-care (01) ==
LOC: ER 09:00
DX: R51.9 Headache, unspecified (principal); M54.2 Cervicalgia; J44.9 Chronic obstructive pulmonary disease, unspecified; I50.9 Heart failure, unspecified; I11.0 Hypertensive heart disease with heart failure; F03.90 Unspecified dementia, unspecified severity, without behavioral disturbance, psychotic disturbance, mood disturbance, and anxiety; Z86.73 Personal history of transient ischemic attack (TIA), and cerebral infarction without residual deficits; Z85.3 Personal history of malignant neoplasm of breast; Z87.891 Personal history of nicotine dependence; Z91.040 Latex allergy status; Z88.5 Allergy status to narcotic agent
CPT/HCPCS: 36415; 70450; 71045; 72125; 80053; 82550; 83605; 83735; 84484; 85025; 86140; 87040; 93005; 96374; 99285; A4615; J2270